=== PATIENT | male | born 2005 | race African-American/Black ===

== ENCOUNTER 2024-04-20 13:53 | Emergency (ER) | payer MEDICAID ==
[~2024-04-20] VITALS: Ht 182.9 cm; Wt 77.1 kg
[2024-04-20 14:04] VITALS: BP 129/73; TEMP 98.1
[2024-04-20] MEDS ORDERED: DOXY100C2 PO (14:22)
[2024-04-20] MEDS ORDERED: DOXYCYCLINE HYCLATE (100 MG) 100 MG TABLET ONE (14:24)
[2024-04-20] MEDS ORDERED: CEFTRIAXONE 500 MG VIAL ONE (14:24)
[2024-04-20] MEDS ORDERED: LIDOCAINE /MPF 1% VIAL 5 ML VIAL ONE (14:24)
[2024-04-20] MEDS: DOXYCYCLINE HYCLATE (100 MG) 100 MG TABLET PO ONE (14:30)
[2024-04-20] MEDS: CEFTRIAXONE 500 MG VIAL IM ONE (14:30)
[2024-04-20 14:50] VITALS: O2SAT 100
[2024-04-20 15:15] LABS: APPEARANCE,URINE CLEAR (CLEAR); BILIRUBIN,URINE NEGATIVE (NEGATIVE); BLOOD, URINE NEGATIVE Ery/uL (NEGATIVE); COLOR,URINE YELLOW (YELLOW); KETONES,URINE NEGATIVE (NEGATIVE); LEUKOCYTE ESTERASE ,URINE NEGATIVE (NEGATIVE); NITRITE, URINE NEGATIVE (NEGATIVE); PH,URINE 6.5 (5.0-8.0); PROTEIN,URINE NEGATIVE (NEGATIVE); UGLUCOSE NEGATIVE (NEGATIVE)
[2024-04-20 15:31] LABS: ADD URINE CULTURE YES; BACTERIA,URINE 1+ /HPF (None Seen); MUCUS,URINE Few /LPF (None Seen); RBC,URINE 0-2 /HPF (0-2); SQUAMOUS EPITHELIAL CELL,UR None Seen /HPF (None Seen)
[2024-04-21 07:09] LABS: RAPID PLASMA REAGIN QUAL. Non Reactive (Non Reactive)
[2024-04-21 11:14] LABS: HIV-1 p24 ANTIGEN NON REACTIVE (NONREACTIVE); HIV-1/2 ANTIBODY NON REACTIVE (NONREACTIVE)
[2024-04-21 14:10] LABS: CHLAMYDIA TRACHOMATIS NAA Positive (Negative); NEISSERIA GONORRHOEAE NAA Negative (Negative)
[2024-04-22 06:09] LABS: *HSV 1 DNA PCR Negative (Negative); *HSV 2 DNA PCR Negative (Negative)
== END 2024-04-20 14:51 | disposition home or self-care (01) ==
LOC: ER 13:58
DX: R30.0 Dysuria (principal); R53.81 Other malaise; Z20.2 Contact with and (suspected) exposure to infections with a predominantly sexual mode of transmission
CPT/HCPCS: 99283; 86592; 86593; 96372; 87086; 81001; 36415; 87529; 87806; 87491; 87591; J0696; J3490

== ENCOUNTER 2024-06-25 20:00 | Emergency (ER) | payer MEDICAID, OTHER ==
[~2024-06-25 20:00] MED LIST: DOXY100C2 PO
== END 2024-06-26 00:14 | disposition left against medical advice (07) ==
LOC: ER 20:04
DX: Z00.00 Encounter for general adult medical examination without abnormal findings (principal); Z53.21 Procedure and treatment not carried out due to patient leaving prior to being seen by health care provider